=== PATIENT | female | born 1935 | race Caucasian/White ===

== ENCOUNTER 2021-09-01 14:28 | Inpatient (IN) ==
[2021-09-03] MEDS ORDERED: Furosemide 20 MG TABLET PO PRN (20:54)
[2021-09-03] MEDS ORDERED: *HR* LORazepam 0.5 MG TABLET PO PRN (20:54)
[2021-09-03] MEDS ORDERED: Hyoscyamine SL 0.125 MG TAB.SUBL SL PRN (20:54)
[2021-09-03] MEDS ORDERED: Bisacodyl 10 MG RECTAL SUPPOSITORY RC PRN (20:54)
[2021-09-03] MEDS ORDERED: haloperidoL 1 MG TABLET PO PRN (21:17)
[2021-09-03] MEDS: Apixaban 2.5 MG TABLET PO SCH (21:47)
[2021-09-03] MEDS: levETIRAcetam 250 MG TABLET PO SCH (21:47)
[2021-09-04] MEDS: Levothyroxine 25 MCG TABLET PO SCH (05:35)
[2021-09-04 06:27] LABS: Basophils # 0.1 K/mcL (0.0-0.2); Basophils % 1.2 %; Eosinophils # 0.3 K/mcL (0.0-0.6); Eosinophils % 6.5 %; Hematocrit 23.8 % (35.3-44.9); Hemoglobin 7.4 g/dL (11.5-15.4); Immature Granulocytes % 0.5 % (0-4); Lymphocytes # 1.3 K/mcL (0.6-4.6); Lymphocytes % 31.4 %; Mean Corpuscular HGB Conc 31.1 g/dL (31.6-35.5); Mean Corpuscular Hemoglobin 30.2 pg (28.0-33.3); Mean Corpuscular Volume 97.1 fL (83.0-100.0); Mean Platelet Volume 10.3 fL (9.4-12.4); Monocytes # 0.3 K/mcL (0.0-1.3); Neutrophils # 2.2 K/mcL (1.6-8.9); Platelet Count 333 K/mcL (140-400); Red Blood Count 2.45 M/mcL (3.82-4.97); Red Cell Distribution Width 13.3 % (11.5-14.5); Segmented Neutrophils % 53.4 %; White Blood Count 4.2 K/mcL (4.3-11.1)
[2021-09-04 07:06] LABS: Calcium 8.1 mg/dL (8.6-10.3); Potassium 4.1 mEq/L (3.5-5.1)
[2021-09-04] MEDS: levETIRAcetam 250 MG TABLET PO SCH ×2 (09:22→22:02)
[2021-09-04] MEDS: QUEtiapine Fumarate 25 MG TABLET PO SCH (09:22)
[2021-09-04] MEDS: NIFEdipine XL (24 HR) 60 MG TAB.ER.24 PO SCH (09:22)
[2021-09-04] MEDS: Vitamin B Complex/Vit C/Vit E 1 EACH TABLET PO SCH (09:22)
[2021-09-04] MEDS: Apixaban 2.5 MG TABLET PO SCH ×2 (09:22→22:03)
[2021-09-04] MEDS: Multivit/Ca/Min/Fe/FA 1 TAB TABLET PO SCH (09:22)
[2021-09-04] MEDS: Thiamine (B-1) 100 MG TABLET PO SCH (09:22)
[2021-09-04] MEDS ORDERED: Dextrose Gel 15 GM/37.5 ML TUBE PO PRN ×2 (13:54)
[2021-09-04] MEDS ORDERED: D5% in Water 1,000 ML IVC PRN (13:54)
[2021-09-04] MEDS ORDERED: *HR* Dextrose 50 % in Water (Syg) 50 ML SYRINGE IVP PRN (13:54)
[2021-09-04] MEDS: Insulin LISPRO 300 UNITS/3 ML VIAL SUBQ SCH ×2 (17:08→21:49)
[2021-09-05] MEDS: Levothyroxine 25 MCG TABLET PO SCH (05:13)
[2021-09-05] MEDS: Insulin LISPRO 300 UNITS/3 ML VIAL SUBQ SCH ×4 (07:46→21:28)
[2021-09-05] MEDS: levETIRAcetam 250 MG TABLET PO SCH ×2 (08:00→21:28)
[2021-09-05] MEDS: QUEtiapine Fumarate 25 MG TABLET PO SCH (08:00)
[2021-09-05] MEDS: Multivit/Ca/Min/Fe/FA 1 TAB TABLET PO SCH (08:00)
[2021-09-05] MEDS: Thiamine (B-1) 100 MG TABLET PO SCH (08:01)
[2021-09-05] MEDS: Apixaban 2.5 MG TABLET PO SCH ×2 (08:01→21:27)
[2021-09-05] MEDS: Vitamin B Complex/Vit C/Vit E 1 EACH TABLET PO SCH (08:01)
[2021-09-05] MEDS: NIFEdipine XL (24 HR) 60 MG TAB.ER.24 PO SCH (08:03)
[2021-09-05] MEDS: Acetaminophen 325 MG TABLET PO PRN (14:49)
[2021-09-06] MEDS: Acetaminophen 325 MG TABLET PO PRN ×2 (05:14→21:25)
[2021-09-06] MEDS: Levothyroxine 25 MCG TABLET PO SCH (05:14)
[2021-09-06] MEDS: Insulin LISPRO 300 UNITS/3 ML VIAL SUBQ SCH ×4 (08:35→21:27)
[2021-09-06] MEDS: QUEtiapine Fumarate 25 MG TABLET PO SCH (08:50)
[2021-09-06] MEDS: NIFEdipine XL (24 HR) 60 MG TAB.ER.24 PO SCH (08:50)
[2021-09-06] MEDS: Vitamin B Complex/Vit C/Vit E 1 EACH TABLET PO SCH (08:50)
[2021-09-06] MEDS: Multivit/Ca/Min/Fe/FA 1 TAB TABLET PO SCH (08:50)
[2021-09-06] MEDS: Thiamine (B-1) 100 MG TABLET PO SCH (08:51)
[2021-09-06] MEDS: levETIRAcetam 250 MG TABLET PO SCH ×2 (08:51→21:27)
[2021-09-06] MEDS: Apixaban 2.5 MG TABLET PO SCH ×2 (08:54→21:26)
[2021-09-07] MEDS: Levothyroxine 25 MCG TABLET PO SCH (05:24)
[2021-09-07] MEDS: Insulin LISPRO 300 UNITS/3 ML VIAL SUBQ SCH ×3 (07:57→16:33)
[2021-09-07] MEDS: NIFEdipine XL (24 HR) 60 MG TAB.ER.24 PO SCH (08:47)
[2021-09-07] MEDS: Thiamine (B-1) 100 MG TABLET PO SCH (08:48)
[2021-09-07] MEDS: Vitamin B Complex/Vit C/Vit E 1 EACH TABLET PO SCH (08:48)
[2021-09-07] MEDS: Apixaban 2.5 MG TABLET PO SCH ×2 (08:48→21:11)
[2021-09-07] MEDS: Multivit/Ca/Min/Fe/FA 1 TAB TABLET PO SCH (08:48)
[2021-09-07] MEDS: levETIRAcetam 250 MG TABLET PO SCH ×2 (08:49→21:11)
[2021-09-07] MEDS: QUEtiapine Fumarate 25 MG TABLET PO SCH (21:11)
[2021-09-08] MEDS: Levothyroxine 25 MCG TABLET PO SCH (06:43)
[2021-09-08] MEDS: Insulin LISPRO 300 UNITS/3 ML VIAL SUBQ SCH ×5 (06:43→22:34)
[2021-09-08] MEDS: Apixaban 2.5 MG TABLET PO SCH ×2 (08:04→22:36)
[2021-09-08] MEDS: Thiamine (B-1) 100 MG TABLET PO SCH (08:05)
[2021-09-08] MEDS: Vitamin B Complex/Vit C/Vit E 1 EACH TABLET PO SCH (08:05)
[2021-09-08] MEDS: Multivit/Ca/Min/Fe/FA 1 TAB TABLET PO SCH (08:05)
[2021-09-08] MEDS: NIFEdipine XL (24 HR) 60 MG TAB.ER.24 PO SCH (08:05)
[2021-09-08] MEDS: levETIRAcetam 250 MG TABLET PO SCH ×2 (08:05→22:36)
[2021-09-08] MEDS: QUEtiapine Fumarate 25 MG TABLET PO SCH (22:36)
[2021-09-09] MEDS: Levothyroxine 25 MCG TABLET PO SCH (06:21)
[2021-09-09 08:01] LABS: Hemoglobin 7.3 g/dL (11.5-15.4); Mean Corpuscular HGB Conc 30.4 g/dL (31.6-35.5); Mean Corpuscular Hemoglobin 29.9 pg (28.0-33.3); Mean Corpuscular Volume 98.4 fL (83.0-100.0); Mean Platelet Volume 9.5 fL (9.4-12.4); Platelet Count 296 K/mcL (140-400); Red Blood Count 2.44 M/mcL (3.82-4.97); Red Cell Distribution Width 13.7 % (11.5-14.5); White Blood Count 5.7 K/mcL (4.3-11.1)
[2021-09-09 08:26] LABS: Calcium 8.1 mg/dL (8.6-10.3); Potassium 4.8 mEq/L (3.5-5.1)
[2021-09-09] MEDS: Insulin LISPRO 300 UNITS/3 ML VIAL SUBQ SCH ×4 (09:46→20:37)
[2021-09-09] MEDS: NIFEdipine XL (24 HR) 60 MG TAB.ER.24 PO SCH (10:37)
[2021-09-09] MEDS: Thiamine (B-1) 100 MG TABLET PO SCH (10:37)
[2021-09-09] MEDS: Apixaban 2.5 MG TABLET PO SCH ×2 (10:38→20:22)
[2021-09-09] MEDS: Multivit/Ca/Min/Fe/FA 1 TAB TABLET PO SCH (10:38)
[2021-09-09] MEDS: Vitamin B Complex/Vit C/Vit E 1 EACH TABLET PO SCH (10:38)
[2021-09-09] MEDS: levETIRAcetam 250 MG TABLET PO SCH ×2 (10:38→20:22)
[2021-09-09] MEDS: QUEtiapine Fumarate 25 MG TABLET PO SCH (20:22)
[2021-09-10] MEDS: Levothyroxine 25 MCG TABLET PO SCH (05:47)
[2021-09-10] MEDS: Insulin LISPRO 300 UNITS/3 ML VIAL SUBQ SCH ×4 (07:24→20:48)
[2021-09-10] MEDS: Apixaban 2.5 MG TABLET PO SCH ×2 (08:51→20:47)
[2021-09-10] MEDS: Thiamine (B-1) 100 MG TABLET PO SCH (08:51)
[2021-09-10] MEDS: NIFEdipine XL (24 HR) 60 MG TAB.ER.24 PO SCH (08:51)
[2021-09-10] MEDS: Vitamin B Complex/Vit C/Vit E 1 EACH TABLET PO SCH (08:51)
[2021-09-10] MEDS: levETIRAcetam 250 MG TABLET PO SCH ×2 (08:51→20:47)
[2021-09-10] MEDS: Multivit/Ca/Min/Fe/FA 1 TAB TABLET PO SCH (08:51)
[2021-09-10] MEDS: Acetaminophen 325 MG TABLET PO PRN (12:26)
[2021-09-10] MEDS: QUEtiapine Fumarate 25 MG TABLET PO SCH (20:47)
[2021-09-11] MEDS: Levothyroxine 25 MCG TABLET PO SCH (05:42)
[2021-09-11] MEDS: Insulin LISPRO 300 UNITS/3 ML VIAL SUBQ SCH ×4 (08:39→22:11)
[2021-09-11] MEDS: Thiamine (B-1) 100 MG TABLET PO SCH (08:40)
[2021-09-11] MEDS: levETIRAcetam 250 MG TABLET PO SCH ×2 (08:40→20:58)
[2021-09-11] MEDS: Apixaban 2.5 MG TABLET PO SCH ×2 (08:41→20:58)
[2021-09-11] MEDS: Multivit/Ca/Min/Fe/FA 1 TAB TABLET PO SCH (08:41)
[2021-09-11] MEDS: Vitamin B Complex/Vit C/Vit E 1 EACH TABLET PO SCH (08:41)
[2021-09-11] MEDS: NIFEdipine XL (24 HR) 60 MG TAB.ER.24 PO SCH (08:41)
[2021-09-11] MEDS: QUEtiapine Fumarate 25 MG TABLET PO SCH (20:58)
[2021-09-12] MEDS: Levothyroxine 25 MCG TABLET PO SCH (05:32)
[2021-09-12] MEDS: Insulin LISPRO 300 UNITS/3 ML VIAL SUBQ SCH ×4 (07:21→21:52)
[2021-09-12] MEDS: Vitamin B Complex/Vit C/Vit E 1 EACH TABLET PO SCH (07:39)
[2021-09-12] MEDS: Multivit/Ca/Min/Fe/FA 1 TAB TABLET PO SCH (07:39)
[2021-09-12] MEDS: NIFEdipine XL (24 HR) 60 MG TAB.ER.24 PO SCH (07:39)
[2021-09-12] MEDS: levETIRAcetam 250 MG TABLET PO SCH ×2 (07:39→20:26)
[2021-09-12] MEDS: Thiamine (B-1) 100 MG TABLET PO SCH (07:39)
[2021-09-12] MEDS: Apixaban 2.5 MG TABLET PO SCH ×2 (07:39→20:25)
[2021-09-12] MEDS: Acetaminophen 325 MG TABLET PO PRN (08:30)
[2021-09-12 12:23] LABS: Hematocrit 24.9 % (35.3-44.9); Hemoglobin 7.8 g/dL (11.5-15.4); Mean Corpuscular HGB Conc 31.3 g/dL (31.6-35.5); Mean Corpuscular Hemoglobin 30.4 pg (28.0-33.3); Mean Corpuscular Volume 96.9 fL (83.0-100.0); Mean Platelet Volume 9.5 fL (9.4-12.4); Platelet Count 242 K/mcL (140-400); Red Blood Count 2.57 M/mcL (3.82-4.97); Red Cell Distribution Width 13.9 % (11.5-14.5); White Blood Count 6.9 K/mcL (4.3-11.1)
[2021-09-12 12:42] LABS: Calcium 8.6 mg/dL (8.6-10.3); Magnesium 1.9 mg/dL (1.6-2.6); Potassium 4.9 mEq/L (3.5-5.1)
[2021-09-12 17:19] LABS: Bilirubin,Urine Negative (Negative); Blood,Urine Negative (Negative); Clarity,Urine Clear (Clear); Color,Urine Yellow (Yellow); Glucose,Urine (UA) Normal (Normal); Ketones,Urine Negative (Negative); Leukocyte Esterase,Urine Negative (Negative); Nitrite,Urine Negative (Negative); Protein,Urine >=300 mg/dL (Neg-Trace); Specific Gravity,Urine >= 1.030 (1.010-1.025); Urobilinogen,Urine Normal (Normal)
[2021-09-12 17:30] LABS: Squamous Epithelial Cell,Urine Few per hpf (None-Few)
[2021-09-12 18:36] LABS: Folate > 22.3 ng/mL (3.0-16.0); Vitamin B12 908 pg/mL (250-1100)
[2021-09-12] MEDS: QUEtiapine Fumarate 25 MG TABLET PO SCH (20:27)
[2021-09-13] MEDS: Levothyroxine 25 MCG TABLET PO SCH (06:16)
[2021-09-13] MEDS: Insulin LISPRO 300 UNITS/3 ML VIAL SUBQ SCH ×4 (07:18→20:04)
[2021-09-13] MEDS: Thiamine (B-1) 100 MG TABLET PO SCH (07:47)
[2021-09-13] MEDS: Acetaminophen 325 MG TABLET PO PRN (07:47)
[2021-09-13] MEDS: Apixaban 2.5 MG TABLET PO SCH ×2 (07:47→19:46)
[2021-09-13] MEDS: levETIRAcetam 250 MG TABLET PO SCH ×2 (07:47→19:46)
[2021-09-13] MEDS: Multivit/Ca/Min/Fe/FA 1 TAB TABLET PO SCH (07:47)
[2021-09-13] MEDS: Vitamin B Complex/Vit C/Vit E 1 EACH TABLET PO SCH (07:47)
[2021-09-13] MEDS: NIFEdipine XL (24 HR) 60 MG TAB.ER.24 PO SCH (07:47)
[2021-09-13] MEDS: QUEtiapine Fumarate 25 MG TABLET PO SCH (19:46)
[2021-09-14] MEDS: Levothyroxine 25 MCG TABLET PO SCH (05:43)
[2021-09-14] MEDS: Insulin LISPRO 300 UNITS/3 ML VIAL SUBQ SCH ×4 (07:17→19:31)
[2021-09-14] MEDS: NIFEdipine XL (24 HR) 60 MG TAB.ER.24 PO SCH (07:36)
[2021-09-14] MEDS: Thiamine (B-1) 100 MG TABLET PO SCH (07:37)
[2021-09-14] MEDS: levETIRAcetam 250 MG TABLET PO SCH ×2 (07:37→19:31)
[2021-09-14] MEDS: Vitamin B Complex/Vit C/Vit E 1 EACH TABLET PO SCH (07:37)
[2021-09-14] MEDS: Apixaban 2.5 MG TABLET PO SCH ×2 (07:37→19:30)
[2021-09-14] MEDS: Multivit/Ca/Min/Fe/FA 1 TAB TABLET PO SCH (07:37)
[2021-09-14] MEDS: QUEtiapine Fumarate 25 MG TABLET PO SCH (19:31)
[2021-09-15] MEDS: Levothyroxine 25 MCG TABLET PO SCH (05:48)
[2021-09-15] MEDS: Insulin LISPRO 300 UNITS/3 ML VIAL SUBQ SCH ×4 (08:06→20:00)
[2021-09-15] MEDS: Multivit/Ca/Min/Fe/FA 1 TAB TABLET PO SCH (08:09)
[2021-09-15] MEDS: Vitamin B Complex/Vit C/Vit E 1 EACH TABLET PO SCH (08:09)
[2021-09-15] MEDS: levETIRAcetam 250 MG TABLET PO SCH ×2 (08:09→20:00)
[2021-09-15] MEDS: Thiamine (B-1) 100 MG TABLET PO SCH (08:09)
[2021-09-15] MEDS: NIFEdipine XL (24 HR) 60 MG TAB.ER.24 PO SCH (08:09)
[2021-09-15] MEDS: Apixaban 2.5 MG TABLET PO SCH ×2 (08:09→20:00)
[2021-09-15] MEDS: QUEtiapine Fumarate 25 MG TABLET PO SCH (20:00)
[2021-09-16] MEDS: Levothyroxine 25 MCG TABLET PO SCH (06:03)
[2021-09-16 07:22] LABS: Hematocrit 24.8 % (35.3-44.9); Hemoglobin 7.5 g/dL (11.5-15.4); Mean Corpuscular HGB Conc 30.2 g/dL (31.6-35.5); Mean Corpuscular Hemoglobin 29.9 pg (28.0-33.3); Mean Corpuscular Volume 98.8 fL (83.0-100.0); Mean Platelet Volume 9.8 fL (9.4-12.4); Platelet Count 252 K/mcL (140-400); Red Blood Count 2.51 M/mcL (3.82-4.97); Red Cell Distribution Width 14.7 % (11.5-14.5); White Blood Count 8.6 K/mcL (4.3-11.1)
[2021-09-16 07:38] LABS: Calcium 8.5 mg/dL (8.6-10.3); Potassium 4.9 mEq/L (3.5-5.1)
[2021-09-16] MEDS: Insulin LISPRO 300 UNITS/3 ML VIAL SUBQ SCH ×4 (08:17→20:08)
[2021-09-16] MEDS: Vitamin B Complex/Vit C/Vit E 1 EACH TABLET PO SCH (08:24)
[2021-09-16] MEDS: Multivit/Ca/Min/Fe/FA 1 TAB TABLET PO SCH (08:25)
[2021-09-16] MEDS: levETIRAcetam 250 MG TABLET PO SCH ×2 (08:25→20:05)
[2021-09-16] MEDS: NIFEdipine XL (24 HR) 60 MG TAB.ER.24 PO SCH (08:25)
[2021-09-16] MEDS: Thiamine (B-1) 100 MG TABLET PO SCH (08:25)
[2021-09-16] MEDS: Apixaban 2.5 MG TABLET PO SCH ×2 (08:25→20:05)
[2021-09-16] MEDS ORDERED: 0.9 % Sodium Chloride 1,000 ML IVC SCH (15:30)
[2021-09-16] MEDS: Vancomycin Oral Soln 125 MG/2.5 ML UDC PO SCH ×2 (18:06→20:05)
[2021-09-17] MEDS: Levothyroxine 25 MCG TABLET PO SCH (05:39)
[2021-09-17] MEDS: Insulin LISPRO 300 UNITS/3 ML VIAL SUBQ SCH ×4 (07:07→20:00)
[2021-09-17] MEDS: Vitamin B Complex/Vit C/Vit E 1 EACH TABLET PO SCH (08:41)
[2021-09-17] MEDS: levETIRAcetam 250 MG TABLET PO SCH ×2 (08:41→19:58)
[2021-09-17] MEDS: Acetaminophen 325 MG TABLET PO PRN (08:41)
[2021-09-17] MEDS: Thiamine (B-1) 100 MG TABLET PO SCH (08:41)
[2021-09-17] MEDS: NIFEdipine XL (24 HR) 60 MG TAB.ER.24 PO SCH (08:41)
[2021-09-17] MEDS: Multivit/Ca/Min/Fe/FA 1 TAB TABLET PO SCH (08:41)
[2021-09-17] MEDS: Vancomycin Oral Soln 125 MG/2.5 ML UDC PO SCH ×4 (08:41→20:00)
[2021-09-17] MEDS: Apixaban 2.5 MG TABLET PO SCH (08:41)
[2021-09-17] MEDS: hydrALAZINE 10 MG TABLET PO PRN (08:54)
[2021-09-17 09:00] LABS: Basophils % 0.5 %; Eosinophils # 0.4 K/mcL (0.0-0.6); Eosinophils % 4.2 %; Hematocrit 21.3 % (35.3-44.9); Hemoglobin 6.6 g/dL (11.5-15.4); Immature Granulocytes % 0.6 % (0-4); Lymphocytes % 23.3 %; Mean Corpuscular Hemoglobin 30.6 pg (28.0-33.3); Mean Corpuscular Volume 98.6 fL (83.0-100.0); Mean Platelet Volume 9.5 fL (9.4-12.4); Monocytes # 0.4 K/mcL (0.0-1.3); Monocytes % 4.3 %; Neutrophils # 5.6 K/mcL (1.6-8.9); Platelet Count 211 K/mcL (140-400); Red Blood Count 2.16 M/mcL (3.82-4.97); Segmented Neutrophils % 67.1 %; White Blood Count 8.4 K/mcL (4.3-11.1)
[2021-09-17 09:23] LABS: Albumin 2.5 g/dL (3.5-5.7); Bilirubin,Total 0.2 mg/dL (0.3-1.0); Calcium 8.3 mg/dL (8.6-10.3); Globulin 2.5 g/dL (2.4-3.5); Potassium 4.9 mEq/L (3.5-5.1)
[2021-09-17] MEDS ORDERED: Furosemide 20 MG/2 ML VIAL IVP ONE (12:30)
[2021-09-17] MEDS ORDERED: 0.9 % Sodium Chloride 250 ML IVC SCH (12:30)
[2021-09-17 20:35] LABS: Basophils % 0.5 %; Eosinophils # 0.3 K/mcL (0.0-0.6); Eosinophils % 3.9 %; Hematocrit 27.7 % (35.3-44.9); Hemoglobin 8.7 g/dL (11.5-15.4); Immature Granulocytes % 0.4 % (0-4); Lymphocytes # 1.3 K/mcL (0.6-4.6); Lymphocytes % 15.9 %; Mean Corpuscular HGB Conc 31.4 g/dL (31.6-35.5); Mean Corpuscular Hemoglobin 30.3 pg (28.0-33.3); Mean Corpuscular Volume 96.5 fL (83.0-100.0); Mean Platelet Volume 9.8 fL (9.4-12.4); Monocytes # 0.4 K/mcL (0.0-1.3); Monocytes % 4.2 %; Neutrophils # 6.2 K/mcL (1.6-8.9); Platelet Count 221 K/mcL (140-400); Red Blood Count 2.87 M/mcL (3.82-4.97); Red Cell Distribution Width 15.2 % (11.5-14.5); Segmented Neutrophils % 75.1 %; White Blood Count 8.3 K/mcL (4.3-11.1)
[2021-09-18] MEDS: Levothyroxine 25 MCG TABLET PO SCH (05:57)
[2021-09-18] MEDS: Insulin LISPRO 300 UNITS/3 ML VIAL SUBQ SCH ×4 (07:24→19:59)
[2021-09-18] MEDS: Vitamin B Complex/Vit C/Vit E 1 EACH TABLET PO SCH (09:22)
[2021-09-18] MEDS: Vancomycin Oral Soln 125 MG/2.5 ML UDC PO SCH ×4 (09:22→19:58)
[2021-09-18] MEDS: Thiamine (B-1) 100 MG TABLET PO SCH (09:23)
[2021-09-18] MEDS: NIFEdipine XL (24 HR) 60 MG TAB.ER.24 PO SCH (09:23)
[2021-09-18] MEDS: levETIRAcetam 250 MG TABLET PO SCH ×2 (09:24→19:58)
[2021-09-18] MEDS: Multivit/Ca/Min/Fe/FA 1 TAB TABLET PO SCH (09:24)
[2021-09-19] MEDS: Levothyroxine 25 MCG TABLET PO SCH (05:47)
[2021-09-19] MEDS: Insulin LISPRO 300 UNITS/3 ML VIAL SUBQ SCH ×4 (07:56→19:57)
[2021-09-19] MEDS: hydrALAZINE 10 MG TABLET PO PRN (07:58)
[2021-09-19] MEDS: levETIRAcetam 250 MG TABLET PO SCH ×2 (07:58→19:47)
[2021-09-19] MEDS: NIFEdipine XL (24 HR) 60 MG TAB.ER.24 PO SCH (07:58)
[2021-09-19] MEDS: Vitamin B Complex/Vit C/Vit E 1 EACH TABLET PO SCH (07:58)
[2021-09-19] MEDS: Thiamine (B-1) 100 MG TABLET PO SCH (07:58)
[2021-09-19] MEDS: Multivit/Ca/Min/Fe/FA 1 TAB TABLET PO SCH (07:58)
[2021-09-19] MEDS: Vancomycin Oral Soln 125 MG/2.5 ML UDC PO SCH ×4 (07:59→19:47)
[2021-09-20] MEDS: Levothyroxine 25 MCG TABLET PO SCH (05:30)
[2021-09-20] MEDS: Insulin LISPRO 300 UNITS/3 ML VIAL SUBQ SCH ×4 (07:25→21:37)
[2021-09-20] MEDS: levETIRAcetam 250 MG TABLET PO SCH ×2 (07:52→21:36)
[2021-09-20] MEDS: NIFEdipine XL (24 HR) 60 MG TAB.ER.24 PO SCH (07:53)
[2021-09-20] MEDS: Thiamine (B-1) 100 MG TABLET PO SCH (07:53)
[2021-09-20] MEDS: Multivit/Ca/Min/Fe/FA 1 TAB TABLET PO SCH (07:53)
[2021-09-20] MEDS: Vitamin B Complex/Vit C/Vit E 1 EACH TABLET PO SCH (07:53)
[2021-09-20] MEDS: Vancomycin Oral Soln 125 MG/2.5 ML UDC PO SCH ×4 (07:53→21:37)
[2021-09-20 09:07] LABS: Basophils # 0.1 K/mcL (0.0-0.2); Basophils % 1.5 %; Eosinophils # 0.3 K/mcL (0.0-0.6); Eosinophils % 7.1 %; Hematocrit 28.4 % (35.3-44.9); Lymphocytes # 1.9 K/mcL (0.6-4.6); Lymphocytes % 46.4 %; Mean Corpuscular HGB Conc 31.7 g/dL (31.6-35.5); Mean Corpuscular Hemoglobin 30.2 pg (28.0-33.3); Mean Corpuscular Volume 95.3 fL (83.0-100.0); Mean Platelet Volume 9.5 fL (9.4-12.4); Monocytes # 0.3 K/mcL (0.0-1.3); Monocytes % 8.1 %; Neutrophils # 1.5 K/mcL (1.6-8.9); Platelet Count 262 K/mcL (140-400); Red Blood Count 2.98 M/mcL (3.82-4.97); Red Cell Distribution Width 15.5 % (11.5-14.5); Segmented Neutrophils % 35.9 %; White Blood Count 4.1 K/mcL (4.3-11.1)
[2021-09-20 09:21] LABS: Calcium 8.8 mg/dL (8.6-10.3); Magnesium 1.7 mg/dL (1.6-2.6); Potassium 5.5 mEq/L (3.5-5.1)
[2021-09-21] MEDS: Levothyroxine 25 MCG TABLET PO SCH (05:09)
[2021-09-21] MEDS: Insulin LISPRO 300 UNITS/3 ML VIAL SUBQ SCH ×4 (07:16→19:51)
[2021-09-21] MEDS: NIFEdipine XL (24 HR) 60 MG TAB.ER.24 PO SCH (08:44)
[2021-09-21] MEDS: Multivit/Ca/Min/Fe/FA 1 TAB TABLET PO SCH (08:44)
[2021-09-21] MEDS: Vitamin B Complex/Vit C/Vit E 1 EACH TABLET PO SCH (08:45)
[2021-09-21] MEDS: levETIRAcetam 250 MG TABLET PO SCH ×2 (08:45→19:51)
[2021-09-21] MEDS: Thiamine (B-1) 100 MG TABLET PO SCH (08:45)
[2021-09-21] MEDS: Vancomycin Oral Soln 125 MG/2.5 ML UDC PO SCH ×4 (08:45→19:51)
[2021-09-21] MEDS: hydrALAZINE 10 MG TABLET PO SCH (16:05)
[2021-09-22] MEDS: hydrALAZINE 10 MG TABLET PO SCH ×3 (00:16→15:57)
[2021-09-22] MEDS: Levothyroxine 25 MCG TABLET PO SCH (05:16)
[2021-09-22] MEDS: NIFEdipine XL (24 HR) 60 MG TAB.ER.24 PO SCH (08:16)
[2021-09-22] MEDS: Multivit/Ca/Min/Fe/FA 1 TAB TABLET PO SCH (08:16)
[2021-09-22] MEDS: levETIRAcetam 250 MG TABLET PO SCH ×2 (08:17→20:50)
[2021-09-22] MEDS: Thiamine (B-1) 100 MG TABLET PO SCH (08:17)
[2021-09-22] MEDS: Vancomycin Oral Soln 125 MG/2.5 ML UDC PO SCH ×4 (08:18→20:51)
[2021-09-22] MEDS: Vitamin B Complex/Vit C/Vit E 1 EACH TABLET PO SCH (08:18)
[2021-09-22] MEDS: Insulin LISPRO 300 UNITS/3 ML VIAL SUBQ SCH ×4 (08:19→19:12)
[2021-09-22] MEDS ORDERED: NIFEdipine XL (24 HR) 30 MG TAB.ER.24 PO STA (09:14)
[2021-09-22 11:24] LABS: Hematocrit 28.4 % (35.3-44.9); Mean Corpuscular HGB Conc 31.7 g/dL (31.6-35.5); Mean Corpuscular Hemoglobin 30.1 pg (28.0-33.3); Mean Platelet Volume 9.5 fL (9.4-12.4); Platelet Count 245 K/mcL (140-400); Red Blood Count 2.99 M/mcL (3.82-4.97); Red Cell Distribution Width 15.7 % (11.5-14.5); White Blood Count 5.4 K/mcL (4.3-11.1)
[2021-09-22 12:52] LABS: Albumin 2.7 g/dL (3.5-5.7); Albumin/Globulin Ratio 0.9 (1.1-2.2); Bilirubin,Total 0.3 mg/dL (0.3-1.0); Calcium 8.9 mg/dL (8.6-10.3); Globulin 2.9 g/dL (2.4-3.5); Potassium 5.7 mEq/L (3.5-5.1); Total Protein 5.6 g/dL (6.4-8.9)
[2021-09-23] MEDS: hydrALAZINE 10 MG TABLET PO SCH ×3 (00:04→17:08)
[2021-09-23] MEDS: Levothyroxine 25 MCG TABLET PO SCH (06:13)
[2021-09-23] MEDS: Insulin LISPRO 300 UNITS/3 ML VIAL SUBQ SCH ×4 (07:36→20:07)
[2021-09-23] MEDS: Thiamine (B-1) 100 MG TABLET PO SCH (07:39)
[2021-09-23] MEDS: levETIRAcetam 250 MG TABLET PO SCH ×2 (07:39→20:07)
[2021-09-23] MEDS: Multivit/Ca/Min/Fe/FA 1 TAB TABLET PO SCH (07:39)
[2021-09-23] MEDS: Vancomycin Oral Soln 125 MG/2.5 ML UDC PO SCH ×4 (07:39→20:07)
[2021-09-23] MEDS: Vitamin B Complex/Vit C/Vit E 1 EACH TABLET PO SCH (07:39)
[2021-09-23] MEDS: NIFEdipine XL (24 HR) 30 MG TAB.ER.24 PO SCH (09:34)
[2021-09-23 15:49] LABS: VBG Chloride 120 mEq/L (98-107)
[2021-09-23 16:06] LABS: BUN/Creatinine Ratio 18 (6-26); Blood Urea Nitrogen 42 mg/dL (8-23); Calcium 8.9 mg/dL (8.6-10.3); Carbon Dioxide 18 mEq/L (23-29); Glucose 94 mg/dL (70-105); eGFR For African Americans 24 (> 60); eGFR For Non-African Americans 20 (> 60)
[2021-09-23] MEDS ORDERED: *HR* Dextrose 50 % in Water (Syg) 50 ML SYRINGE IVP ONE (16:09)
[2021-09-23] MEDS ORDERED: Insulin Human Regular 10 UNIT in 0.9 % Sodium Chloride 10 ML IV ONE (16:09)
[2021-09-23] MEDS: Thiamine (B-1) 100 MG, Folic Acid 1 MG, MVI, adult with vitamin K 10 ML in 0.9 % Sodi... IVPB SCH (16:59)
[2021-09-23] MEDS ORDERED: Thiamine (B-1) 100 MG, Folic Acid 1 MG, MVI, adult with vitamin K 10 ML in 0.9 % Sodi... IVPB SCH (18:00)
[2021-09-24] MEDS: hydrALAZINE 10 MG TABLET PO SCH ×2 (00:26→09:42)
[2021-09-24] MEDS: Levothyroxine 25 MCG TABLET PO SCH (06:12)
[2021-09-24 07:00] LABS: Potassium 5.4 mEq/L (3.5-5.1)
[2021-09-24] MEDS: Insulin LISPRO 300 UNITS/3 ML VIAL SUBQ SCH ×4 (07:26→20:32)
[2021-09-24] MEDS: NIFEdipine XL (24 HR) 30 MG TAB.ER.24 PO SCH (09:25)
[2021-09-24] MEDS: Thiamine (B-1) 100 MG, Folic Acid 1 MG, MVI, adult with vitamin K 10 ML in 0.9 % Sodi... IVPB SCH (09:25)
[2021-09-24] MEDS: Vancomycin Oral Soln 125 MG/2.5 ML UDC PO SCH ×4 (09:26→20:32)
[2021-09-24] MEDS: levETIRAcetam 250 MG TABLET PO SCH ×2 (09:26→20:32)
[2021-09-24] MEDS: hydrALAZINE 25 MG TABLET PO SCH ×3 (09:30→23:01)
[2021-09-24] MEDS ORDERED: Thiamine (B-1) 100 MG, Folic Acid 1 MG, MVI, adult with vitamin K 10 ML in 0.9 % Sodi... IVPB SCH (16:00)
[2021-09-24 19:06] LABS: Bilirubin,Urine Negative (Negative); Blood,Urine Negative (Negative); Clarity,Urine Cloudy (Clear); Color,Urine Yellow (Yellow); Glucose,Urine (UA) Normal (Normal); Ketones,Urine Negative (Negative); Leukocyte Esterase,Urine Trace (Negative); Nitrite,Urine Negative (Negative); PH,Urine 5.5 pH Units (5.0-8.0); Protein,Urine >=300 mg/dL (Neg-Trace); Specific Gravity,Urine >= 1.030 (1.010-1.025); Urobilinogen,Urine Normal (Normal)
[2021-09-24 19:27] LABS: Bacteria,Urine Many per hpf (None-Few); Squamous Epithelial Cell,Urine Few per hpf (None-Few); WBC,Urine 50-100 per hpf (0-3)
[2021-09-24] MEDS ORDERED: D5% in 0.45% NACL 1,000 ML IVC SCH (20:45)
[2021-09-24] MEDS: Acetaminophen 325 MG TABLET PO PRN (23:09)
[2021-09-25] MEDS: Levothyroxine 25 MCG TABLET PO SCH (05:18)
[2021-09-25 07:14] LABS: Hematocrit 29.5 % (35.3-44.9); Hemoglobin 9.5 g/dL (11.5-15.4); Mean Corpuscular HGB Conc 32.2 g/dL (31.6-35.5); Mean Corpuscular Hemoglobin 30.5 pg (28.0-33.3); Mean Corpuscular Volume 94.9 fL (83.0-100.0); Mean Platelet Volume 9.9 fL (9.4-12.4); Platelet Count 238 K/mcL (140-400); Red Blood Count 3.11 M/mcL (3.82-4.97); White Blood Count 7.7 K/mcL (4.3-11.1)
[2021-09-25 07:32] LABS: Calcium 8.8 mg/dL (8.6-10.3); Potassium 4.7 mEq/L (3.5-5.1)
[2021-09-25] MEDS: Vancomycin Oral Soln 125 MG/2.5 ML UDC PO SCH ×4 (08:26→19:56)
[2021-09-25] MEDS: NIFEdipine XL (24 HR) 30 MG TAB.ER.24 PO SCH (08:27)
[2021-09-25] MEDS: levETIRAcetam 250 MG TABLET PO SCH ×2 (08:27→19:56)
[2021-09-25] MEDS: hydrALAZINE 25 MG TABLET PO SCH ×2 (08:28→17:00)
[2021-09-25] MEDS: Insulin LISPRO 300 UNITS/3 ML VIAL SUBQ SCH ×4 (08:31→21:04)
[2021-09-25] MEDS: D5% in 0.45% NACL 1,000 ML IVC SCH ×2 (11:54→19:52)
[2021-09-25] MEDS: Acetaminophen 325 MG TABLET PO PRN (20:13)
[2021-09-26] MEDS: hydrALAZINE 25 MG TABLET PO SCH ×3 (01:59→17:11)
[2021-09-26] MEDS: D5% in 0.45% NACL 1,000 ML IVC SCH ×3 (03:57→18:51)
[2021-09-26] MEDS: Levothyroxine 25 MCG TABLET PO SCH (05:36)
[2021-09-26] MEDS: NIFEdipine XL (24 HR) 30 MG TAB.ER.24 PO SCH (07:59)
[2021-09-26] MEDS: Vancomycin Oral Soln 125 MG/2.5 ML UDC PO SCH ×4 (08:00→19:49)
[2021-09-26] MEDS: levETIRAcetam 250 MG TABLET PO SCH ×2 (08:00→19:48)
[2021-09-26] MEDS: Insulin LISPRO 300 UNITS/3 ML VIAL SUBQ SCH ×4 (08:00→19:49)
[2021-09-26 08:14] LABS: Potassium 4.5 mEq/L (3.5-5.1)
[2021-09-26 08:48] LABS: Hematocrit 24.1 % (35.3-44.9); Hemoglobin 7.6 g/dL (11.5-15.4); Mean Corpuscular HGB Conc 31.5 g/dL (31.6-35.5); Mean Corpuscular Volume 95.3 fL (83.0-100.0); Mean Platelet Volume 10.4 fL (9.4-12.4); Platelet Count 233 K/mcL (140-400); Red Blood Count 2.53 M/mcL (3.82-4.97); Red Cell Distribution Width 15.9 % (11.5-14.5); White Blood Count 8.7 K/mcL (4.3-11.1)
[2021-09-26] MEDS ORDERED: Sodium Bicarbonate 50 MEQ/50 ML VIAL IVP SCH (09:30)
[2021-09-26] MEDS: Nystatin Ointment 15 GM TUBE TP SCH ×3 (14:49→19:49)
[2021-09-26] MEDS: Doxycycline 100 MG CAPSULE PO SCH (17:57)
[2021-09-27] MEDS: hydrALAZINE 25 MG TABLET PO SCH ×3 (00:43→16:46)
[2021-09-27] MEDS: D5% in 0.45% NACL 1,000 ML IVC SCH (00:49)
[2021-09-27] MEDS: Doxycycline 100 MG CAPSULE PO SCH ×2 (05:43→16:46)
[2021-09-27] MEDS: Levothyroxine 25 MCG TABLET PO SCH (05:43)
[2021-09-27] MEDS: Insulin LISPRO 300 UNITS/3 ML VIAL SUBQ SCH ×4 (08:46→20:03)
[2021-09-27 08:47] LABS: Hematocrit 25.3 % (35.3-44.9); Hemoglobin 8.1 g/dL (11.5-15.4); Mean Corpuscular Hemoglobin 30.3 pg (28.0-33.3); Mean Corpuscular Volume 94.8 fL (83.0-100.0); Mean Platelet Volume 9.6 fL (9.4-12.4); Platelet Count 248 K/mcL (140-400); Red Blood Count 2.67 M/mcL (3.82-4.97); Red Cell Distribution Width 15.9 % (11.5-14.5); White Blood Count 9.6 K/mcL (4.3-11.1)
[2021-09-27] MEDS: NIFEdipine XL (24 HR) 30 MG TAB.ER.24 PO SCH (08:48)
[2021-09-27] MEDS: levETIRAcetam 250 MG TABLET PO SCH ×2 (08:49→21:14)
[2021-09-27] MEDS: Vancomycin Oral Soln 125 MG/2.5 ML UDC PO SCH ×4 (08:50→21:14)
[2021-09-27] MEDS: Nystatin Ointment 15 GM TUBE TP SCH ×3 (09:01→16:49)
[2021-09-27 09:28] LABS: Calcium 8.4 mg/dL (8.6-10.3); Potassium 4.3 mEq/L (3.5-5.1)
[2021-09-28] MEDS: hydrALAZINE 25 MG TABLET PO SCH ×3 (01:48→17:09)
[2021-09-28] MEDS: Nystatin Ointment 15 GM TUBE TP SCH ×5 (01:48→23:26)
[2021-09-28] MEDS: Doxycycline 100 MG CAPSULE PO SCH ×2 (05:52→17:09)
[2021-09-28] MEDS: Levothyroxine 25 MCG TABLET PO SCH (05:53)
[2021-09-28] MEDS: Insulin LISPRO 300 UNITS/3 ML VIAL SUBQ SCH ×4 (08:22→21:07)
[2021-09-28] MEDS: Vancomycin Oral Soln 125 MG/2.5 ML UDC PO SCH ×4 (08:48→20:15)
[2021-09-28] MEDS: NIFEdipine XL (24 HR) 30 MG TAB.ER.24 PO SCH (08:49)
[2021-09-28] MEDS: levETIRAcetam 250 MG TABLET PO SCH ×2 (08:49→20:15)
[2021-09-28 09:24] LABS: Calcium 8.5 mg/dL (8.6-10.3); Potassium 4.6 mEq/L (3.5-5.1)
[2021-09-29] MEDS: hydrALAZINE 25 MG TABLET PO SCH ×3 (00:09→16:56)
[2021-09-29] MEDS: Doxycycline 100 MG CAPSULE PO SCH ×2 (05:42→16:56)
[2021-09-29] MEDS: Levothyroxine 25 MCG TABLET PO SCH (05:42)
[2021-09-29] MEDS: D5% in 0.45% NACL 1,000 ML IVC SCH (07:24)
[2021-09-29] MEDS: Insulin LISPRO 300 UNITS/3 ML VIAL SUBQ SCH ×4 (07:27→20:43)
[2021-09-29] MEDS: levETIRAcetam 250 MG TABLET PO SCH ×2 (07:40→19:41)
[2021-09-29] MEDS: Vancomycin Oral Soln 125 MG/2.5 ML UDC PO SCH ×4 (07:40→19:41)
[2021-09-29] MEDS: NIFEdipine XL (24 HR) 30 MG TAB.ER.24 PO SCH (07:40)
[2021-09-29] MEDS: Nystatin Ointment 15 GM TUBE TP SCH ×4 (07:41→19:41)
[2021-09-29 08:41] LABS: Calcium 8.6 mg/dL (8.6-10.3); Magnesium 1.7 mg/dL (1.6-2.6); Potassium 4.5 mEq/L (3.5-5.1)
[2021-09-30] MEDS: hydrALAZINE 25 MG TABLET PO SCH ×3 (00:59→16:08)
[2021-09-30] MEDS: Doxycycline 100 MG CAPSULE PO SCH ×2 (06:01→16:08)
[2021-09-30] MEDS: Levothyroxine 25 MCG TABLET PO SCH (06:01)
[2021-09-30] MEDS: Insulin LISPRO 300 UNITS/3 ML VIAL SUBQ SCH ×5 (07:14→21:21)
[2021-09-30] MEDS: Nystatin Ointment 15 GM TUBE TP SCH ×4 (07:37→19:30)
[2021-09-30] MEDS: NIFEdipine XL (24 HR) 30 MG TAB.ER.24 PO SCH (07:37)
[2021-09-30] MEDS: Vancomycin Oral Soln 125 MG/2.5 ML UDC PO SCH ×3 (07:37→16:08)
[2021-09-30] MEDS: levETIRAcetam 250 MG TABLET PO SCH ×2 (07:37→19:29)
[2021-10-01] MEDS: hydrALAZINE 25 MG TABLET PO SCH ×4 (00:06→23:56)
[2021-10-01] MEDS: Doxycycline 100 MG CAPSULE PO SCH (05:50)
[2021-10-01] MEDS: Levothyroxine 25 MCG TABLET PO SCH (05:50)
[2021-10-01] MEDS: Insulin LISPRO 300 UNITS/3 ML VIAL SUBQ SCH ×4 (07:14→21:19)
[2021-10-01] MEDS: Nystatin Ointment 15 GM TUBE TP SCH ×4 (07:48→21:22)
[2021-10-01] MEDS: NIFEdipine XL (24 HR) 30 MG TAB.ER.24 PO SCH (07:48)
[2021-10-01] MEDS: levETIRAcetam 250 MG TABLET PO SCH ×2 (07:48→21:19)
[2021-10-01 13:43] LABS: Calcium 8.5 mg/dL (8.6-10.3); Potassium 4.6 mEq/L (3.5-5.1)
[2021-10-01 14:00] LABS: Hematocrit 24.7 % (35.3-44.9); Hemoglobin 7.8 g/dL (11.5-15.4); Mean Corpuscular HGB Conc 31.6 g/dL (31.6-35.5); Mean Corpuscular Hemoglobin 29.9 pg (28.0-33.3); Mean Corpuscular Volume 94.6 fL (83.0-100.0); Platelet Count 350 K/mcL (140-400); Red Blood Count 2.61 M/mcL (3.82-4.97); Red Cell Distribution Width 15.9 % (11.5-14.5)
[2021-10-01 20:20] VITALS: O2SAT 99
[2021-10-02] MEDS: Levothyroxine 25 MCG TABLET PO SCH ×2 (05:57→06:08)
[2021-10-02 07:01] VITALS: BP 154/71; PULSE 56; RESP 18; TEMP 98.6
[2021-10-02] MEDS: levETIRAcetam 250 MG TABLET PO SCH (09:00)
[2021-10-02] MEDS: NIFEdipine XL (24 HR) 30 MG TAB.ER.24 PO SCH (09:00)
[2021-10-02] MEDS: Nystatin Ointment 15 GM TUBE TP SCH (09:00)
[2021-10-02] MEDS: hydrALAZINE 25 MG TABLET PO SCH (09:00)
[2021-10-02] MEDS: Insulin LISPRO 300 UNITS/3 ML VIAL SUBQ SCH (09:15)
== END 2021-10-02 10:45 | DRG 371 ==
LOC: INPPIK 09-03 20:48
PROVIDERS: ADMIT Family Medicine; ATTEND Family Medicine